=== PATIENT | male | born 1980 | race Caucasian/White ===

== ENCOUNTER 2016-11-04 16:55 | Inpatient (IN) | payer OTHER ==
[~2016-11-04] VITALS: Ht 177.8 cm; Wt 59.2 kg
--- NOTE | ~2016-11-04 | EKG ---
[place], [place] ELECTROCARDIOGRAM REPORT NAME: QUOC ROBERTS UNIT #: [id number] ROOM: [facility] DOCTOR: RAMÓN TAVERAS MD BIRTHDATE: [birth year] DOS: 11/04/2016 TIME: 05:17 p.m. Normal sinus rhythm with left atrial enlargement. Incomplete right bundle branch block. Heart rate 92, otherwise normal. RAMÓN TAVERAS MD CM:EKGRPT:ELECTROCARDIOGRAM REPORT [id number] RAMÓN TAVERAS MD
[2016-11-04 17:01] VITALS: BP 156/88
[2016-11-04 17:15] LABS: BASO % 0.3 % (0.0-1.0); EOS # 0.1 10*3/uL (0.0-0.4); EOS % 0.9 % (1.0-4.0); HEMATOCRIT 43.4 % (42.0-52.0); HEMOGLOBIN 15.1 g/dl (14.0-18.0); LYMPH # 1.2 10*3/uL (1.3-4.4); LYMPH % 12.5 % (27.0-41.0); MEAN CELL VOLUME 90.8 fl (80.0-94.0); MEAN CORPUSCULAR HGB 31.6 pg (27.0-31.0); MEAN CORPUSCULAR HGB CONC 34.8 g/dl (33.0-37.0); MEAN PLATELET VOLUME 8.7 fl (9.6-12.3); MONO # 0.6 10*3/uL (0.1-1.0); MONO % 5.8 % (3.0-9.0); NEUT # 7.9 10*3/uL (2.3-7.9); NEUT % 80.3 % (47.0-73.0); PLATELET COUNT AUTOMATED 331 10*3/uL (130-400); RED BLOOD COUNT 4.78 10*6/uL (4.50-5.90); RED CELL DISTRI WIDTH 12.1 % (0-14.5); WHITE BLOOD COUNT 9.9 10*3/uL (4.8-10.8)
[2016-11-04 17:31] LABS: ALBUMIN 4.3 gm/dl (3.1-4.5); ALKALINE PHOSPHATASE 61 U/L (45-117); BILIRUBIN, TOTAL 0.3 mg/dl (0.2-1.0); BUN 7 mg/dl (7-24); CARBON DIOXIDE 26 mmol/L (21-32); CHLORIDE 105 mmol/L (98-107); EST GLOM FILT AFRICAN AMERICAN > 60 ml/min; GLUCOSE 101 mg/dL (65-99); POTASSIUM 3.5 mmol/L (3.5-5.1); SGOT/AST 11 IU/L (3-35); SGPT/ALT 18 U/L (12-78); SODIUM 139 mmol/L (136-145)
[2016-11-04 17:39] LABS: THYROID STIM HORMONE (HS) 0.102 uIU/ml (0.358-4.75)
[2016-11-04 17:45] LABS: BILIRUBIN NEGATIVE (NEGATIVE); BLOOD NEGATIVE (NEGATIVE); CLARITY SL CLOUDY (CLEAR); COLOR YELLOW (YELLOW); GLUCOSE TRACE (NEGATIVE); KETONE NEGATIVE (NEGATIVE); LEUKO ESTERASE NEGATIVE (NEGATIVE); NITRITE NEGATIVE (NEGATIVE); PH 6.5 (5.0-9.0); PROTEIN TRACE (NEGATIVE); SPECIFIC GRAVITY 1.025 (1.005-1.030)
[2016-11-04 17:51] LABS: BACTERIA 1+; EPITHELIAL CELLS 0-2; MUCOUS TRACE; RBC 0-2 rbc/hpf (0-2); URINE REFLEX COMMENT NO (NO); WBC 0-2 wbc/hpf (0-5)
[2016-11-04 17:53] LABS: URINE AMPHETAMINES < 1000 (1000ng/ml); URINE BARBITURATES < 200 (200ng/ml); URINE COCAINE > 300 (300ng/ml)
[2016-11-04 20:00] VITALS: BP 117/61
[2016-11-05] VITALS: BP 119/57
[2016-11-05 08:00] VITALS: BP 101/61
[2016-11-05 12:00] VITALS: BP 113/55
[2016-11-05 16:00] VITALS: BP 110/77
[2016-11-05 20:00] VITALS: BP 115/51
[2016-11-06] VITALS: BP 113/61
[2016-11-06 08:00] VITALS: BP 112/62
[2016-11-06 16:00] VITALS: BP 119/57
[2016-11-06 20:00] VITALS: BP 119/67
[2016-11-07] VITALS: BP 106/57
[2016-11-07 08:00] VITALS: BP 110/76
[2016-11-07] MEDS ORDERED: ATARAX,VISTARIL50 MG PO (10:18)
[2016-11-07] MEDS ORDERED: ROPINIROLE HYD0.5 MG PO (10:18)
[2016-11-07] MEDS ORDERED: ZOFRAN 4 MG ED2 TAB PO (10:18)
== END 2016-11-07 12:00 | disposition home or self-care (01) | DRG 897 ==
LOC: ED 16:55 → 5E 17:10 → EDHOLD 17:10 → 5E 17:28
PROVIDERS: Nurse Practitioner Family
DX: F11.23 Opioid dependence with withdrawal (principal); F14.10 Cocaine abuse, uncomplicated; Z82.49 Family history of ischemic heart disease and other diseases of the circulatory system; R03.0 Elevated blood-pressure reading, without diagnosis of hypertension; Z71.6 Tobacco abuse counseling

== ENCOUNTER 2017-10-01 12:07 | Emergency (ER) | payer OTHER ==
[~2017-10-01] VITALS: Ht 172.7 cm; Wt 59.0 kg
[~2017-10-01 12:07] MED LIST: ATARAX,VISTARIL50 MG PO; ROPINIROLE HYD0.5 MG PO; ZOFRAN 4 MG ED2 TAB PO
[2017-10-01] MEDS ORDERED: SUBOXONE 8 MG-1 EACH SL (12:19)
[2017-10-01 13:25] LABS: BASO # 0.1 10*3/uL (0.0-0.1); BASO % 0.7 % (0.0-1.0); EOS # 0.3 10*3/uL (0.0-0.4); EOS % 3.7 % (1.0-4.0); HEMATOCRIT 46.7 % (42.0-52.0); LYMPH # 1.9 10*3/uL (1.3-4.4); MEAN CELL VOLUME 89.8 fl (80.0-94.0); MEAN CORPUSCULAR HGB 30.8 pg (27.0-31.0); MEAN CORPUSCULAR HGB CONC 34.3 g/dl (33.0-37.0); MEAN PLATELET VOLUME 9.2 fl (9.6-12.3); MONO # 0.6 10*3/uL (0.1-1.0); MONO % 7.5 % (3.0-9.0); NEUT # 4.8 10*3/uL (2.3-7.9); PLATELET COUNT AUTOMATED 277 10*3/uL (130-400); RED CELL DISTRI WIDTH 12.9 % (0-14.5); WHITE BLOOD COUNT 7.6 10*3/uL (4.8-10.8)
[2017-10-01 13:39] LABS: ALBUMIN 4.8 gm/dl (3.1-4.5); ALKALINE PHOSPHATASE 110 U/L (45-117); BUN 10 mg/dl (7-24); CHLORIDE 99 mmol/L (98-107); CREATININE 1.02 mg/dL (0.70-1.30); POTASSIUM 3.6 mmol/L (3.5-5.1); SGOT/AST 168 IU/L (3-35); SGPT/ALT 453 U/L (12-78); SODIUM 134 mmol/L (136-145); TOTAL PROTEIN 8.4 gm/dL (6.4-8.2)
== END 2017-10-01 14:19 | disposition home or self-care (01) ==
LOC: ED 12:07
PROVIDERS: Emergency Medicine
DX: F15.10 Other stimulant abuse, uncomplicated (principal); F17.200 Nicotine dependence, unspecified, uncomplicated; F14.10 Cocaine abuse, uncomplicated; F11.10 Opioid abuse, uncomplicated; Z79.899 Other long term (current) drug therapy

== ENCOUNTER 2023-11-19 10:03 | Emergency (ER) | payer OTHER ==
[~2023-11-19] VITALS: Wt 72.6 kg
[~2023-11-19 10:03] MED LIST changes: +SUBOXONE 8 MG-1 EACH SL
== END 2023-11-19 11:53 ==
LOC: ED 10:03
DX: Z02.89 Encounter for other administrative examinations (principal); F17.200 Nicotine dependence, unspecified, uncomplicated; Z79.899 Other long term (current) drug therapy